=== PATIENT | male | born 1980 | race Caucasian/White ===

== ENCOUNTER 2018-08-17 08:09 | Inpatient (IN) | payer OTHER ==
[2018-08-17] MEDS ORDERED: HYDROMORPHONE 1 MG/ML SYRINGE IV ONE ×2 (08:41→10:16)
[2018-08-17] MEDS ORDERED: ONDANSETRON HCL 4 MG/2 ML SOL IV ONE ×2 (08:41→12:04)
[2018-08-17] MEDS ORDERED: SODIUM CHLORIDE 0.9% 1000ML 1,000 ML IV ONE ×3 (08:41→20:19)
[2018-08-17] MEDS ORDERED: HYDROMORPHONE 1 MG/ML SYRINGE ONE ×4 (08:58→14:43)
[2018-08-17] MEDS ORDERED: ONDANSETRON HCL 4 MG/2 ML SOL ONE ×2 (08:59→12:16)
[2018-08-17 09:04] LABS: BASOPHILS % (AUTO) 0 % (0-3); EOSINOPHILS % (AUTO) 0 % (0-9); HEMATOCRIT 50 % (39-53); HEMOGLOBIN 15.7 gm/dl (13.5-17.7); LYMPHOCYTES % (AUTO) 13.9 % (10-50); MEAN CORPUSCULAR HGB CONC 31.6 gm/dl (32.0-36.0); MEAN CORPUSCULAR VOLUME 89 fL (80-100); MONOCYTES % (AUTO) 9.4 % (0-12); NEUTROPHILS % (AUTO) 76.4 % (37-80)
[2018-08-17 09:17] LABS: ALBUMIN 3.9 gm/dl (3.4-5.0); BILIRUBIN,TOTAL 0.5 mg/dl (0.2-1.0); CALCIUM 9.1 mg/dl (8.5-10.1); CARBON DIOXIDE 27.9 mEq/L (21-32); CREATININE 1.5 mg/dl (0.80-1.30); POTASSIUM 3.7 mMol/L (3.5-5.1); TOTAL PROTEIN 8.1 gm/dl (6.4-8.2)
[2018-08-17] MEDS ORDERED: LIDOCAINE HCL 2% (VISCOUS) 15 ML SOL MT ONE (09:30)
[2018-08-17] MEDS ORDERED: ALUMINUM/MAGNESIUM 30 ML SUS PO ONE (09:30)
[2018-08-17] MEDS ORDERED: ALUMINUM/MAGNESIUM 30 ML SUS ONE (09:32)
[2018-08-17] MEDS ORDERED: LIDOCAINE HCL 2% (VISCOUS) 15 ML SOL ONE (09:32)
[2018-08-17] MEDS ORDERED: PANTOPRAZOLE SODIUM 40 MG/10 ML PDS IV ONE (09:34)
[2018-08-17] MEDS ORDERED: PANTOPRAZOLE SODIUM 40 MG/10 ML PDS ONE (09:35)
[2018-08-17 10:34] LABS: APPEARANCE,URINE Slightly Cloudy; BILIRUBIN,URINE 1+ (NEGATIVE); COLOR,URINE Dark yellow; GLUCOSE, URINE (UA) NEGATIVE (NEGATIVE); KETONES,URINE 2+ (NEGATIVE); LEUKOCYTE ESTERASE ,URINE NEGATIVE (NEGATIVE); NITRATE,URINE NEGATIVE (NEGATIVE); OCCULT BLOOD,URINE NEGATIVE (NEG-TRACE)
[2018-08-17 10:51] LABS: ICTOTEST,URINE NEGATIVE (NEGATIVE)
[2018-08-17 10:52] LABS: BACTERIA NEGATIVE (< 1+); CRYSTALS NEGATIVE (0-3 AVE/HPF); RBC,URINE NEG (0-3AV/HPF); WBC,URINE 0-3 (0-5AV/HPF)
[2018-08-17] MEDS ORDERED: SODIUM CHLORIDE 0.9% 1000ML 1,000 ML IV SCH (12:15)
[2018-08-17] MEDS: HYDROMORPHONE 1 MG/ML SYRINGE IV PRN ×4 (12:16→21:14)
[2018-08-17] MEDS ORDERED: NALOXONE HYDROCHLORIDE 0.4 MG/ML SOL IV PRN (16:23)
[2018-08-17] MEDS: ONDANSETRON HCL 4 MG/2 ML SOL IV PRN (20:50)
[2018-08-17] MEDS: LORAZEPAM 2 MG/ML SOL IV PRN (21:14)
[2018-08-17] MEDS: SODIUM CHLORIDE 0.9% 1000ML 1,000 ML IV SCH (22:00)
[2018-08-18] MEDS: HYDROMORPHONE 1 MG/ML SYRINGE IV PRN ×7 (01:08→23:36)
[2018-08-18] MEDS: SODIUM CHLORIDE 0.9% 1000ML 1,000 ML IV SCH ×3 (05:06→18:48)
[2018-08-18 07:17] LABS: HEMATOCRIT 39 % (39-53); HEMOGLOBIN 13.1 gm/dl (13.5-17.7); MEAN CORPUSCULAR HEMOGLOBIN 29.2 pg (27.0-32.0); MEAN CORPUSCULAR HGB CONC 33.4 gm/dl (32.0-36.0); MEAN CORPUSCULAR VOLUME 87 fL (80-100)
[2018-08-18 07:27] LABS: CALCIUM 8.3 mg/dl (8.5-10.1); CARBON DIOXIDE 26.4 mEq/L (21-32); CREATININE 1.24 mg/dl (0.80-1.30); POTASSIUM 3.5 mMol/L (3.5-5.1)
[2018-08-18 08:00] LABS: BAND NEUTROPHILS % (MANUAL) 0 %; BASOPHILS % (MANUAL) 2 % (0-3); EOSINOPHILS % (MANUAL) 0 % (0-9); LYMPHOCYTES % (MANUAL) 28 % (10-50); MONOCYTES % (MANUAL) 15 % (0-12); NEUTROPHILS % (MANUAL) 55 % (37-80); NORMAL RBCS NORMAL RBCS; WBC MORPHOLOGY COMMENT VARIANT LYMPH'S
[2018-08-18] MEDS: PANTOPRAZOLE SODIUM 40 MG/10 ML PDS IV SCH (09:44)
[2018-08-18] MEDS: LORAZEPAM 2 MG/ML SOL IV PRN (16:56)
[2018-08-18] MEDS: ONDANSETRON HCL 4 MG/2 ML SOL IV PRN (19:38)
[2018-08-18] MEDS ORDERED: LORAZEPAM 2 MG/ML 10ML MDV 2 MG/ML VIAL IV ONE (20:15)
[2018-08-18] MEDS ORDERED: LIDOCAINE HCL 2% (VISCOUS) 15 ML SOL MT ONE (21:15)
[2018-08-18] MEDS ORDERED: ALUMINUM/MAGNESIUM 30 ML SUS PO ONE (21:15)
[2018-08-19] MEDS: SODIUM CHLORIDE 0.9% 1000ML 1,000 ML IV SCH (01:37)
[2018-08-19] MEDS: LORAZEPAM 2 MG/ML SOL IV PRN (03:06)
[2018-08-19] MEDS ORDERED: LIDOCAINE HCL 2% (VISCOUS) 15 ML SOL MT ONE ×2 (04:00→17:59)
[2018-08-19] MEDS ORDERED: ALUMINUM/MAGNESIUM 30 ML SUS PO ONE (04:00)
[2018-08-19] MEDS: HYDROMORPHONE 1 MG/ML SYRINGE IV PRN ×2 (04:59→09:05)
[2018-08-19] MEDS ORDERED: MIRTAZAPINE 15 MG TAB PO ONE (06:15)
[2018-08-19] MEDS ORDERED: SODIUM CHLORIDE 0.9% 1000ML 1,000 ML IV SCH (06:30)
[2018-08-19 07:13] LABS: BASOPHILS % (AUTO) 1 % (0-3); EOSINOPHILS % (AUTO) 1 % (0-9); HEMATOCRIT 38 % (39-53); HEMOGLOBIN 12.4 gm/dl (13.5-17.7); LYMPHOCYTES % (AUTO) 21.6 % (10-50); MEAN CORPUSCULAR HEMOGLOBIN 28.9 pg (27.0-32.0); MEAN CORPUSCULAR VOLUME 87 fL (80-100); MONOCYTES % (AUTO) 11.6 % (0-12)
[2018-08-19 07:15] LABS: CALCIUM 7.6 mg/dl (8.5-10.1); CARBON DIOXIDE 25.6 mEq/L (21-32); CREATININE 1.11 mg/dl (0.80-1.30); POTASSIUM 3.5 mMol/L (3.5-5.1)
[2018-08-19] MEDS: PANTOPRAZOLE SODIUM 40 MG/10 ML PDS IV SCH (09:05)
[2018-08-19] MEDS ORDERED: KETOROLAC TROMETHAMINE 30 MG/ML SOL IV PRN (13:05)
[2018-08-19] MEDS ORDERED: HYDROXYZINE PAMOATE 25 MG CAP PO PRN (13:11)
[2018-08-19] MEDS: ONDANSETRON HCL 4 MG/2 ML SOL IV PRN (14:08)
[2018-08-19] MEDS: GABAPENTIN 300 MG CAP PO SCH ×2 (14:20→20:46)
[2018-08-19] MEDS ORDERED: ACETAMINOPHEN 325 MG ONE (17:53)
[2018-08-19] MEDS ORDERED: ACETAMINOPHEN 325 MG PO PRN (17:57)
[2018-08-19] MEDS ORDERED: LIDOCAINE HCL 2% (VISCOUS) 15 ML SOL PO SCH (18:15)
[2018-08-19] MEDS ORDERED: LIDOCAINE HCL 2% (VISCOUS) 15 ML SOL MT SCH (18:15)
[2018-08-19] MEDS ORDERED: LIDOCAINE HCL 2% (VISCOUS) 15 ML SOL PO PRN (18:55)
[2018-08-19] MEDS: METOPROLOL TARTRATE 50 MG TAB PO SCH (20:46)
[2018-08-19] MEDS ORDERED: MIRTAZAPINE 15 MG TAB PO SCH (21:00)
[2018-08-20 09:14] VITALS: BP 133/90; PULSE 85; RESP 16; TEMP 98.4; O2SAT 95
[2018-08-20] MEDS: GABAPENTIN 300 MG CAP PO SCH (09:15)
[2018-08-20] MEDS: METOPROLOL TARTRATE 50 MG TAB PO SCH (09:15)
== END 2018-08-20 15:55 | disposition home or self-care (01) | DRG 390 ==
LOC: ED 08:09 → ACUTE CARE 15:29
PROVIDERS: ADMIT Family Medicine; ATTEND Family Medicine
DX: K56.699 Other intestinal obstruction unspecified as to partial versus complete obstruction (principal); F41.8 Other specified anxiety disorders; E86.0 Dehydration; R50.9 Fever, unspecified
CPT/HCPCS: 36415; 71045; 74018; 74177; 80048; 80053; 81001; 82150; 85007; 85025; 85027; 94762; 96365; 96366; 96374; 96375; 99284; 99285; J1885; J2060; J2405; Q9967; A9270-GY; J1170